=== PATIENT | female | born 1975 | race Two or more races ===

== ENCOUNTER 2017-05-17 08:52 | Outpatient (CLI) | payer OTHER | END 2017-05-17 23:59 | disposition home or self-care (01) | LOC: MRI 08:52 | DX: M17.11 Unilateral primary osteoarthritis, right knee (principal); M23.221 Derangement of posterior horn of medial meniscus due to old tear or injury, right knee; M71.561 Other bursitis, not elsewhere classified, right knee; M25.461 Effusion, right knee; M65.88 Other synovitis and tenosynovitis, other site | CPT/HCPCS: 73721-TC ==

== ENCOUNTER 2017-06-24 12:59 | Outpatient (CLI) | payer BC ==
[2017-06-24 13:44] LABS: BASOPHILS # (AUTO) 0.1 /CMM (0.0-0.2); BASOPHILS % (AUTO) 0.5 % (0.0-2.0); EOSINOPHILS # (AUTO) 0.3 /CMM (0.0-0.7); EOSINOPHILS % (AUTO) 2.3 % (0.0-6.0); HEMATOCRIT 40 % (33-45); HEMOGLOBIN 13.1 g/dL (11.5-14.8); LYMPHOCYTES # (AUTO) 3.3 /CMM (0.8-4.8); LYMPHOCYTES % (AUTO) 28.9 % (20.0-44.0); MEAN CORPUSCULAR HEMOGLOBIN 26 PG (26.0-33.0); MEAN CORPUSCULAR HGB CONC 33 g/dl (31.0-36.0); MEAN CORPUSCULAR VOLUME 79 fL (82-100); MONOCYTES # (AUTO) 0.9 /CMM (0.1-1.30); MONOCYTES % (AUTO) 8.2 % (2.0-12.0); NEUTROPHILS # (AUTO) 6.8 /CMM (1.8-8.9); NEUTROPHILS % (AUTO) 60.1 % (43.0-81.0); PLATELET COUNT (AUTO) 385 /CMM (150-450); RDW COEFFICIENT OF VARIATION 13.9 (11.5-15.0); RED BLOOD CELL COUNT(AUTO) 5.03 MIL/uL (4.0-5.2); WHITE BLOOD COUNT (AUTO) 11.3 K/uL (4.3-11.0)
[2017-06-24 13:57] LABS: ALBUMIN 3.7 g/dL (3.4-5.0); BILIRUBIN,TOTAL 0.3 mg/dL (0.2-1.0); CALCIUM, SERUM 9.4 mg/dL (8.5-10.1); CREATININE 0.7 mg/dL (0.6-1.3); INR 0.9 (0.87-1.13); POTASSIUM 3.6 mmol/L (3.5-5.1); PROTHROMBIN TIME 9.4 SECS (9.5-12.7)
[2017-06-24 16:13] LABS: APPEARANCE,URINE SL CLOUDY (CLEAR); BILIRUBIN,URINE NEGATIVE (NEGATIVE); BLOOD, URINE NEGATIVE Ery/uL (NEGATIVE); COLOR,URINE YELLOW (YELLOW); KETONES,URINE TRACE (NEGATIVE); LEUKOCYTE ESTERASE ,URINE NEGATIVE (NEGATIVE); NITRITE, URINE NEGATIVE (NEGATIVE); PROTEIN,URINE NEGATIVE (NEGATIVE); UGLUCOSE NEGATIVE (NEGATIVE); UROBILINOGEN,URINE 0.2 EU/dL (0.2)
[2017-06-24 16:42] LABS: BACTERIA,URINE Many /HPF (None Seen); SQUAMOUS EPITHELIAL CELL,UR Many /HPF (None Seen)
== END 2017-06-24 23:59 | disposition home or self-care (01) ==
LOC: LAB 12:59
PROVIDERS: ATTEND Specialist
DX: Z01.818 Encounter for other preprocedural examination (principal)
CPT/HCPCS: 36415; 71020-TC; 80053-TC; 81000-TC; 84703-TC; 85025-TC; 85730-TC; 87086-TC; 87186-TC

== ENCOUNTER 2017-06-29 05:14 | Day surgery (SDC) | payer OTHER ==
[2017-06-29] MEDS ORDERED: CEFAZOLIN SODIUM/DEXTROSE,ISO 50 ML IV ONE (05:48)
[2017-06-29] MEDS ORDERED: LIDOCAINE 1% INJ 50 ML MDV IJ ONE (06:26)
[2017-06-29] MEDS ORDERED: methylPREDNISolone ACETATE 80 MG/ML VIAL ONE (06:27)
[2017-06-29] MEDS ORDERED: FENTANYL PF 100MCG/2ML AMPUL IV ONE (08:04)
[2017-06-29] MEDS ORDERED: HYDROCODONE/APAP 5/325MG 1 EACH TABLET ONE (08:47)
[2017-06-29] MEDS ORDERED: HYDROCODONE/APAP 5/325MG 1 EACH TABLET PO PRN ×2 (09:00)
== END 2017-06-29 09:00 | disposition home or self-care (01) ==
LOC: DS 05:14
PROVIDERS: ATTEND Specialist
DX: S83.281A Other tear of lateral meniscus, current injury, right knee, initial encounter (principal); S83.241A Other tear of medial meniscus, current injury, right knee, initial encounter; X58.XXXA Exposure to other specified factors, initial encounter; Y93.9 Activity, unspecified; Y92.89 Other specified places as the place of occurrence of the external cause; Y99.9 Unspecified external cause status; M94.261 Chondromalacia, right knee; M65.861 Other synovitis and tenosynovitis, right lower leg; M23.41 Loose body in knee, right knee; E66.9 Obesity, unspecified
CPT/HCPCS: 29880; 84703; 88304; 88305; 88311; A4217; A6253 ×2; A6402; J0690 ×2; J1040; J1100; J1885; J2405; J2704; J3490 ×2; Z7610; J3010

== ENCOUNTER 2018-08-15 13:30 | Outpatient (CLI) | payer BC, OTHER | END 2018-08-15 23:59 | disposition home or self-care (01) | LOC: WOU 13:30 | PROVIDERS: ATTEND Podiatrist Foot & Ankle Surgery | DX: B35.3 Tinea pedis (principal); L84 Corns and callosities; Q82.8 Other specified congenital malformations of skin; M79.672 Pain in left foot; M79.671 Pain in right foot | CPT/HCPCS: G0463 ==

== ENCOUNTER 2018-11-02 10:02 | Emergency (ER) | payer BC ==
[~2018-11-02] VITALS: Ht 160 cm; Wt 115.7 kg
[2018-11-02 10:10] VITALS: BP 128/80
== END 2018-11-02 11:40 | disposition home or self-care (01) ==
LOC: ER 10:07
DX: S93.491A Sprain of other ligament of right ankle, initial encounter (principal); Z90.49 Acquired absence of other specified parts of digestive tract; X50.1XXA Overexertion from prolonged static or awkward postures, initial encounter; Y93.89 Activity, other specified; Y92.89 Other specified places as the place of occurrence of the external cause; Y99.0 Civilian activity done for income or pay
CPT/HCPCS: 73610-TC

== ENCOUNTER 2019-03-13 07:38 | Outpatient (CLI) | payer BC ==
[2019-03-13 09:15] LABS: BASOPHILS # (AUTO) 0.1 /CMM (0.0-0.2); BASOPHILS % (AUTO) 0.7 % (0.0-2.0); EOSINOPHILS % (AUTO) 1.3 % (0.0-6.0); HEMATOCRIT 37 % (33-45); LYMPHOCYTES # (AUTO) 3.1 /CMM (0.8-4.8); MEAN CORPUSCULAR HGB CONC 33 g/dl (31.0-36.0); MEAN CORPUSCULAR VOLUME 75 fL (82-100); MONOCYTES # (AUTO) 0.8 /CMM (0.1-1.30); MONOCYTES % (AUTO) 7.6 % (2.0-12.0); NEUTROPHILS # (AUTO) 6.6 /CMM (1.8-8.9); NEUTROPHILS % (AUTO) 61.4 % (43.0-81.0); PLATELET COUNT (AUTO) 375 /CMM (150-450); RED BLOOD CELL COUNT(AUTO) 4.95 MIL/uL (4.0-5.2); WHITE BLOOD COUNT (AUTO) 10.7 K/uL (4.3-11.0)
[2019-03-13 09:40] LABS: ALBUMIN 3.6 g/dL (3.4-5.0); BILIRUBIN,TOTAL 0.5 mg/dL (0.2-1.0); CALCIUM, SERUM 8.8 mg/dL (8.5-10.1); CREATININE 0.6 mg/dL (0.6-1.3); POTASSIUM 3.7 mmol/L (3.5-5.1)
[2019-03-13 09:54] LABS: FREE T4 (FREE THYROXINE) 1.26 ng/dL (0.76-1.46); THYROID STIMULATING HORMONE 2.021 uIU/mL (0.358-3.74)
[2019-03-13 09:56] LABS: APPEARANCE,URINE SL CLOUDY (CLEAR); BILIRUBIN,URINE NEGATIVE (NEGATIVE); BLOOD, URINE NEGATIVE Ery/uL (NEGATIVE); COLOR,URINE YELLOW (YELLOW); KETONES,URINE NEGATIVE (NEGATIVE); LEUKOCYTE ESTERASE ,URINE 1+ (NEGATIVE); NITRITE, URINE NEGATIVE (NEGATIVE); PROTEIN,URINE NEGATIVE (NEGATIVE); UGLUCOSE NEGATIVE (NEGATIVE); UROBILINOGEN,URINE 0.2 EU/dL (0.2)
[2019-03-13 13:18] LABS: RBC,URINE 0-2 /HPF (0-2); SQUAMOUS EPITHELIAL CELL,UR Moderate /HPF (None Seen)
[2019-03-13 13:21] LABS: BACTERIA,URINE Few /HPF (None Seen)
[2019-03-14 08:08] LABS: FOLLICLE STIMULATION HORMONE 2.3 mIU/mL (.); LUTEINIZING HORMONE 2.3 mIU/mL (.)
[2019-03-14 12:06] LABS: FOLIC ACID 8.4 ng/mL (>3.0)
== END 2019-03-13 23:59 | disposition home or self-care (01) ==
LOC: LAB 07:38
PROVIDERS: ATTEND Legal Medicine
DX: Z00.00 Encounter for general adult medical examination without abnormal findings (principal)
CPT/HCPCS: 36415; 80053-TC; 80061-TC; 81000-TC; 82306; 82728-TC; 83001; 83002; 83540-TC; 84439-TC; 84443-TC; 85025-TC; 87086-TC

== ENCOUNTER 2019-03-20 10:49 | Outpatient (CLI) | payer BC | END 2019-03-20 23:59 | disposition home or self-care (01) | LOC: MRI 10:49 | PROVIDERS: ATTEND Legal Medicine | DX: M72.2 Plantar fascial fibromatosis (principal); M77.32 Calcaneal spur, left foot; M19.072 Primary osteoarthritis, left ankle and foot; M20.12 Hallux valgus (acquired), left foot; M25.872 Other specified joint disorders, left ankle and foot; M77.52 Other enthesopathy of left foot and ankle | CPT/HCPCS: 73718-TC ==

== ENCOUNTER 2019-03-28 13:37 | Outpatient (CLI) | payer BC | END 2019-03-28 23:59 | disposition home or self-care (01) | LOC: WOU 13:37 | PROVIDERS: ATTEND Podiatrist Foot & Ankle Surgery | DX: M72.2 Plantar fascial fibromatosis (principal); M20.12 Hallux valgus (acquired), left foot; M79.672 Pain in left foot | CPT/HCPCS: G0463 ==

== ENCOUNTER 2019-05-02 14:14 | Outpatient (CLI) | payer BC ==
[2019-05-02] MEDS ORDERED: DEXAMETHASONE SOD PHOSPHATE 4 MG/ML VIAL IJ ONE (14:30)
[2019-05-02] MEDS ORDERED: BUPIVACAINE 0.5 % PF 150 MG/30 ML VIAL IJ ONE (14:30)
== END 2019-05-02 23:59 | disposition home or self-care (01) ==
LOC: WOU 14:14
PROVIDERS: ATTEND Podiatrist Foot & Ankle Surgery
DX: M72.2 Plantar fascial fibromatosis (principal); M79.672 Pain in left foot
CPT/HCPCS: 20550; J1100; J3490

== ENCOUNTER 2020-11-25 08:21 | Outpatient (CLI) | payer BC ==
[2020-11-25 09:28] LABS: BASOPHILS # (AUTO) 0.1 /CMM (0.0-0.2); BASOPHILS % (AUTO) 0.6 % (0.0-2.0); EOSINOPHILS % (AUTO) 0.9 % (0.0-6.0); HEMATOCRIT 33 % (33-45); LYMPHOCYTES # (AUTO) 4.1 /CMM (0.8-4.8); LYMPHOCYTES % (AUTO) 23.8 % (20.0-44.0); MEAN CORPUSCULAR HGB CONC 31 g/dl (31.0-36.0); MEAN CORPUSCULAR VOLUME 69 fL (82-100); MONOCYTES % (AUTO) 6.1 % (2.0-12.0); NEUTROPHILS # (AUTO) 11.9 /CMM (1.8-8.9); NEUTROPHILS % (AUTO) 68.6 % (43.0-81.0); PLATELET COUNT (AUTO) 586 /CMM (150-450); RED BLOOD CELL COUNT(AUTO) 4.77 MIL/uL (4.0-5.2); WHITE BLOOD COUNT (AUTO) 17.3 K/uL (4.3-11.0)
[2020-11-25 09:42] LABS: BILIRUBIN,URINE NEGATIVE (NEGATIVE); COLOR,URINE YELLOW (YELLOW); LEUKOCYTE ESTERASE ,URINE TRACE (NEGATIVE); NITRITE, URINE NEGATIVE (NEGATIVE); PROTEIN,URINE NEGATIVE (NEGATIVE); UGLUCOSE NEGATIVE (NEGATIVE); UROBILINOGEN,URINE 0.2 EU/dL (0.2)
[2020-11-25 09:46] LABS: POTASSIUM 3.7 mmol/L (3.5-5.1)
[2020-11-25 10:06] LABS: C-REACTIVE PROTEIN 1.6 mg/dL (0.0-0.9); FREE T4 (FREE THYROXINE) 1.11 ng/dL (0.76-1.46); THYROID STIMULATING HORMONE 0.931 uIU/mL (0.358-3.74)
[2020-11-25 10:16] LABS: ALBUMIN 3.4 g/dL (3.4-5.0)
[2020-11-25 10:36] LABS: BACTERIA,URINE Moderate /HPF (None Seen); RBC,URINE 0-2 /HPF (0-2); SQUAMOUS EPITHELIAL CELL,UR Moderate /HPF (None Seen)
[2020-11-25 10:38] LABS: BILIRUBIN,TOTAL 0.3 mg/dL (0.2-1.0); CALCIUM, SERUM 8.9 mg/dL (8.5-10.1); CREATININE 0.5 mg/dL (0.6-1.3); TOTAL PROTEIN, SERUM 7.9 g/dL (6.4-8.2)
[2020-11-25] MEDS ORDERED: IOHEXOL-300 100 ML VIAL IV ONE (11:23)
[2020-11-25] MEDS ORDERED: CT SWABBABLE VALVE TRANS SET 1 EA INFUS.SET MC ONE (11:23)
[2020-11-25] MEDS ORDERED: IV NS 0.9% 250 ML IV ONE (11:23)
== END 2020-11-25 23:59 | disposition home or self-care (01) ==
LOC: CT 08:21
PROVIDERS: ATTEND Legal Medicine
DX: I13.0 Hypertensive heart and chronic kidney disease with heart failure and stage 1 through stage 4 chronic kidney disease, or unspecified chronic kidney disease (principal); N18.9 Chronic kidney disease, unspecified; I50.9 Heart failure, unspecified; R22.1 Localized swelling, mass and lump, neck
CPT/HCPCS: 36415; 70491; 80053; 80061; 81001; 83036; 83615; 83880; 84439; 84443; 85025; 85652; 86140; 87086; J7050; Q9967

== ENCOUNTER 2020-11-28 07:59 | Outpatient (CLI) | payer BC | END 2020-11-28 23:59 | disposition home or self-care (01) | LOC: CARD 07:59 | PROVIDERS: ATTEND Legal Medicine | DX: I08.0 Rheumatic disorders of both mitral and aortic valves (principal); I70.0 Atherosclerosis of aorta | CPT/HCPCS: 93307-TC ==

== ENCOUNTER 2021-02-13 12:26 | Emergency (ER) | payer OTHER, BC ==
[~2021-02-13] VITALS: Ht 170.2 cm; Wt 128.8 kg
[2021-02-13] MEDS ORDERED: IBUP-1955 PO (13:52)
[2021-02-13] MEDS ORDERED: IBUPROFEN 600 MG TABLET ONE (14:05)
[2021-02-13] MEDS: IBUPROFEN 600 MG TABLET PO ONE (14:07)
--- NOTE | 2021-02-13 14:19 | NUR ---
RADHA WRAP APPLIED ON LEFT KNEE AND CRUTCHES PROVIDED. Patient discharged to home in stable condition. Written and verbal after care instructions given. Patient verbalizes understanding of instruction.
[2021-02-13 14:20] VITALS: BP 129/81
== END 2021-02-13 14:21 | disposition home or self-care (01) ==
LOC: ER 12:30
DX: S89.82XA Other specified injuries of left lower leg, initial encounter (principal); Z90.49 Acquired absence of other specified parts of digestive tract; X58.XXXA Exposure to other specified factors, initial encounter; Y93.01 Activity, walking, marching and hiking; Y92.89 Other specified places as the place of occurrence of the external cause; Y99.8 Other external cause status
CPT/HCPCS: 73564-TC

== ENCOUNTER 2021-02-16 12:22 | Outpatient (CLI) | payer OTHER, BC ==
[~2021-02-16 12:22] MED LIST: IBUP-1955 PO
== END 2021-02-16 23:59 | disposition home or self-care (01) ==
LOC: MRI 12:22
PROVIDERS: ATTEND Nurse Practitioner Acute Care
DX: S83.242A Other tear of medial meniscus, current injury, left knee, initial encounter (principal); M17.12 Unilateral primary osteoarthritis, left knee; M22.42 Chondromalacia patellae, left knee; M25.462 Effusion, left knee; X58.XXXA Exposure to other specified factors, initial encounter; Y93.89 Activity, other specified; Y92.89 Other specified places as the place of occurrence of the external cause; Y99.0 Civilian activity done for income or pay
CPT/HCPCS: 73721-TC

== ENCOUNTER 2022-04-06 13:28 | Outpatient (CLI) | payer BC | END 2022-04-06 23:59 | disposition home or self-care (01) | LOC: RAD 13:28 | PROVIDERS: ATTEND Legal Medicine | DX: M19.071 Primary osteoarthritis, right ankle and foot (principal); M20.11 Hallux valgus (acquired), right foot; M77.31 Calcaneal spur, right foot; M25.871 Other specified joint disorders, right ankle and foot | CPT/HCPCS: 73630-TC ==

== ENCOUNTER 2022-04-12 08:03 | Outpatient (CLI) | payer BC ==
[2022-04-12 09:00] LABS: BASOPHILS # (AUTO) 0.1 K/uL (0.0-0.2); EOSINOPHILS % (AUTO) 1.9 % (0.0-6.0); HEMATOCRIT 42 % (33-45); HEMOGLOBIN 13.5 g/dL (11.5-14.8); LYMPHOCYTES # (AUTO) 2.6 K/uL (0.8-4.8); LYMPHOCYTES % (AUTO) 29.7 % (20.0-44.0); MEAN CORPUSCULAR HGB CONC 32 g/dl (31.0-36.0); MEAN CORPUSCULAR VOLUME 81 fL (82-100); MONOCYTES # (AUTO) 0.6 K/uL (0.1-1.30); MONOCYTES % (AUTO) 6.9 % (2.0-12.0); NEUTROPHILS # (AUTO) 5.3 K/uL (1.8-8.9); NEUTROPHILS % (AUTO) 60.5 % (43.0-81.0); PLATELET COUNT (AUTO) 365 K/uL (150-450); RED BLOOD CELL COUNT(AUTO) 5.25 MIL/uL (4.0-5.2); WHITE BLOOD COUNT (AUTO) 8.8 K/uL (4.3-11.0)
[2022-04-12 09:02] LABS: BILIRUBIN,URINE SMALL (NEGATIVE); COLOR,URINE DARK YELLOW (YELLOW); LEUKOCYTE ESTERASE ,URINE TRACE (NEGATIVE); NITRITE, URINE NEGATIVE (NEGATIVE); PH,URINE 6.5 (5.0-8.0); PROTEIN,URINE 30 mg/dl (NEGATIVE); UGLUCOSE NEGATIVE (NEGATIVE)
[2022-04-12 09:33] LABS: THYROID STIMULATING HORMONE 1.895 uIU/mL (0.358-3.74)
[2022-04-12 10:16] LABS: BACTERIA,URINE Few /HPF (None Seen); RBC,URINE 81-100 /HPF (0-2); SQUAMOUS EPITHELIAL CELL,UR Few /HPF (None Seen)
[2022-04-12 10:28] LABS: ALBUMIN 3.6 g/dL (3.4-5.0); BILIRUBIN,TOTAL 0.5 mg/dL (0.2-1.0); CREATININE 0.6 mg/dL (0.6-1.3); POTASSIUM 3.5 mmol/L (3.5-5.1); TOTAL PROTEIN, SERUM 7.5 g/dL (6.4-8.2)
== END 2022-04-12 23:59 | disposition home or self-care (01) ==
LOC: LAB 08:03
PROVIDERS: ATTEND Legal Medicine
DX: Z00.00 Encounter for general adult medical examination without abnormal findings (principal); E11.9 Type 2 diabetes mellitus without complications; E55.9 Vitamin D deficiency, unspecified; E78.00 Pure hypercholesterolemia, unspecified; R53.1 Weakness; I10 Essential (primary) hypertension; D64.9 Anemia, unspecified
CPT/HCPCS: 36415; 80053-TC; 80061-TC; 81001; 82306; 82607-TC; 82728-TC; 83540-TC; 84443-TC; 85025-TC; 85652-TC; 85730-TC

== ENCOUNTER 2022-04-20 10:20 | Outpatient (CLI) | payer BC | END 2022-04-20 23:59 | disposition home or self-care (01) | LOC: WOU 10:20 | PROVIDERS: ATTEND Podiatrist Foot & Ankle Surgery | DX: G57.61 Lesion of plantar nerve, right lower limb (principal); M20.11 Hallux valgus (acquired), right foot; L84 Corns and callosities; M79.671 Pain in right foot | CPT/HCPCS: G0463 ==

== ENCOUNTER 2022-05-18 08:12 | Outpatient (CLI) | payer BC ==
[2022-05-18] MEDS ORDERED: LIDOCAINE HCL/MPF 1% 30 ML VIAL IJ ONE (08:58)
== END 2022-05-18 23:59 | disposition home or self-care (01) ==
LOC: WOU 08:12
PROVIDERS: ATTEND Podiatrist Foot & Ankle Surgery
DX: G57.61 Lesion of plantar nerve, right lower limb (principal); L84 Corns and callosities; M20.11 Hallux valgus (acquired), right foot; M79.671 Pain in right foot
CPT/HCPCS: 64455; J1100; J3490

== ENCOUNTER 2022-12-23 08:13 | Outpatient (CLI) | payer BC ==
[2022-12-23 09:33] LABS: BILIRUBIN,URINE 1+ (NEGATIVE); COLOR,URINE YELLOW (YELLOW); LEUKOCYTE ESTERASE ,URINE TRACE (NEGATIVE); NITRITE, URINE NEGATIVE (NEGATIVE); PROTEIN,URINE NEGATIVE (NEGATIVE); UGLUCOSE NEGATIVE (NEGATIVE)
[2022-12-23 09:42] LABS: BASOPHILS # (AUTO) 0.1 K/uL (0.0-0.2); BASOPHILS % (AUTO) 0.8 % (0.0-2.0); EOSINOPHILS % (AUTO) 1.5 % (0.0-6.0); HEMATOCRIT 41 % (33-45); HEMOGLOBIN 12.6 g/dL (11.5-14.8); LYMPHOCYTES # (AUTO) 3.7 K/uL (0.8-4.8); LYMPHOCYTES % (AUTO) 33.5 % (20.0-44.0); MEAN CORPUSCULAR HGB CONC 31 g/dl (31.0-36.0); MEAN CORPUSCULAR VOLUME 82 fL (82-100); MONOCYTES # (AUTO) 0.9 K/uL (0.1-1.30); MONOCYTES % (AUTO) 8.1 % (2.0-12.0); NEUTROPHILS # (AUTO) 6.2 K/uL (1.8-8.9); NEUTROPHILS % (AUTO) 56.1 % (43.0-81.0); PLATELET COUNT (AUTO) 432 K/uL (150-450); RED BLOOD CELL COUNT(AUTO) 4.99 MIL/uL (4.0-5.2)
[2022-12-23 09:43] LABS: BACTERIA,URINE Rare /HPF (None Seen); SQUAMOUS EPITHELIAL CELL,UR Few /HPF (None Seen); WBC,URINE 0-2 /HPF (0-3)
[2022-12-23 10:00] LABS: C-REACTIVE PROTEIN 0.8 mg/dL (0.0-0.9); THYROID STIMULATING HORMONE 0.95 uIU/mL (0.358-3.74); URIC ACID 4.9 mg/dL (2.6-7.2)
[2022-12-23 10:45] LABS: ALBUMIN 3.8 g/dL (3.4-5.0); BILIRUBIN,TOTAL 0.6 mg/dL (0.2-1.0); CALCIUM, SERUM 9.7 mg/dL (8.5-10.1); CREATININE 0.6 mg/dL (0.6-1.3); POTASSIUM 3.7 mmol/L (3.5-5.1)
== END 2022-12-23 23:59 | disposition home or self-care (01) ==
LOC: LAB 08:13
PROVIDERS: ATTEND Legal Medicine
DX: Z00.00 Encounter for general adult medical examination without abnormal findings (principal); M17.0 Bilateral primary osteoarthritis of knee; M25.862 Other specified joint disorders, left knee; M25.861 Other specified joint disorders, right knee; R53.1 Weakness; E78.00 Pure hypercholesterolemia, unspecified; D64.9 Anemia, unspecified; E55.9 Vitamin D deficiency, unspecified; M25.561 Pain in right knee; M25.562 Pain in left knee
CPT/HCPCS: 36415; 73562; 80053-TC; 81001; 82085; 82306; 82607-TC; 82728-TC; 83540-TC; 84439-TC; 84443-TC; 84550-TC; 85025-TC; 85240; 85652-TC; 85730-TC; 86140-TC; 86200; 86431-TC

== ENCOUNTER 2022-12-24 15:03 | Outpatient (CLI) | payer BC | END 2022-12-24 23:59 | disposition home or self-care (01) | LOC: RAD 15:03 | PROVIDERS: ATTEND Legal Medicine | DX: M17.0 Bilateral primary osteoarthritis of knee (principal); M79.89 Other specified soft tissue disorders; M25.762 Osteophyte, left knee; M25.761 Osteophyte, right knee; M79.604 Pain in right leg; M79.605 Pain in left leg | CPT/HCPCS: 73560-TC; 93970-TC ==

== ENCOUNTER 2023-03-30 08:49 | Outpatient (CLI) | payer BC ==
[2023-03-30 09:32] LABS: BASOPHILS # (AUTO) 0.1 K/uL (0.0-0.2); BASOPHILS % (AUTO) 1.2 % (0.0-2.0); CALCIUM, SERUM 9.7 mg/dL (8.5-10.1); CREATININE 0.6 mg/dL (0.6-1.3); EOSINOPHILS # (AUTO) 0.1 K/uL (0.0-0.7); EOSINOPHILS % (AUTO) 1.2 % (0.0-6.0); HEMATOCRIT 42 % (33-45); HEMOGLOBIN 13.3 g/dL (11.5-14.8); LYMPHOCYTES # (AUTO) 2.7 K/uL (0.8-4.8); MEAN CORPUSCULAR HEMOGLOBIN 25 PG (26.0-33.0); MEAN CORPUSCULAR HGB CONC 32 g/dl (31.0-36.0); MEAN CORPUSCULAR VOLUME 80 fL (82-100); MONOCYTES # (AUTO) 0.9 K/uL (0.1-1.30); MONOCYTES % (AUTO) 7.9 % (2.0-12.0); NEUTROPHILS # (AUTO) 7.4 K/uL (1.8-8.9); NEUTROPHILS % (AUTO) 65.7 % (43.0-81.0); PLATELET COUNT (AUTO) 464 K/uL (150-450); POTASSIUM 3.7 mmol/L (3.5-5.1); PREGNANCY TEST URINE QUAL NEGATIVE (NEGATIVE); RED BLOOD CELL COUNT(AUTO) 5.25 MIL/uL (4.0-5.2); RED CELL DISTRIBUTION WIDTH 14.1 % (11.5-15.0); WHITE BLOOD COUNT (AUTO) 11.3 K/uL (4.3-11.0)
[2023-03-30 09:40] LABS: INR 0.99 (0.91-1.10); PARTIAL THROMBOPLASTIN TIME 30.2 SEC (24.3-34.3); PROTHROMBIN TIME 10.4 SECS (9.2-11.1)
== END 2023-03-30 23:59 | disposition home or self-care (01) ==
LOC: LAB 08:49
PROVIDERS: ATTEND Podiatrist Foot & Ankle Surgery
DX: Z01.818 Encounter for other preprocedural examination (principal); M20.11 Hallux valgus (acquired), right foot; M79.671 Pain in right foot; M25.374 Other instability, right foot
CPT/HCPCS: 36415; 71045-TC; 80048-TC; 84703-TC; 85025-TC; 85610-TC; 85730-TC

== ENCOUNTER 2023-05-31 06:06 | Day surgery (SDC) | payer BC ==
[2023-05-31] MEDS ORDERED: FENTANYL PF 250MCG/5ML AMPUL ONE (06:38)
[2023-05-31] MEDS ORDERED: FAMOTIDINE/PF INJ 20 MG/2 ML VIAL IV ONE (06:39)
[2023-05-31] MEDS ORDERED: MIDAZOLAM HCL 2 MG/2ML VIAL ONE (06:39)
[2023-05-31] MEDS ORDERED: BACITRACIN ZINC OINT PACKET 1 EA PACKET TP ONE (07:06)
[2023-05-31] MEDS ORDERED: BUPIVACAINE 0.5 % PF 150 MG/30 ML VIAL ONE (07:06)
[2023-05-31] MEDS ORDERED: LIDOCAINE 1% INJ 50 ML MDV IJ ONE (07:06)
[2023-05-31] MEDS ORDERED: LIDOCAINE 1%-EPI 1:100,000 20 ML VIAL ONE (07:06)
[2023-05-31] MEDS ORDERED: POLYMYXIN B SULFATE 500,000 UNITS ONE (07:07)
[2023-05-31 07:36] LABS: PREGNANCY TEST URINE QUAL NEGATIVE (NEGATIVE)
[2023-05-31] MEDS ORDERED: LIDOCAINE HCL/MPF 1% 30 ML VIAL IJ ONE (07:39)
[2023-05-31] MEDS ORDERED: HYDROMORPHONE 1 MG/1 ML DISP.SYRIN ONE (09:33)
[2023-05-31] MEDS ORDERED: ONDANSETRON HCL/PF 4 MG/2 ML VIAL ONE (11:12)
[2023-05-31] MEDS ORDERED: HYDROCODONE/APAP 5/325MG TABLET ONE (11:16)
== END 2023-05-31 10:30 | disposition home or self-care (01) ==
LOC: DS 06:06
PROVIDERS: ATTEND Podiatrist Foot & Ankle Surgery
DX: M20.11 Hallux valgus (acquired), right foot (principal); M79.671 Pain in right foot; M25.374 Other instability, right foot; Z98.84 Bariatric surgery status; F41.9 Anxiety disorder, unspecified; M19.90 Unspecified osteoarthritis, unspecified site; E66.01 Morbid (severe) obesity due to excess calories; Z98.890 Other specified postprocedural states; Z79.899 Other long term (current) drug therapy
CPT/HCPCS: 28297; 97162; 73630; 97530; 97112; 97116; 84703; 73660; J0690; J3490 ×5; J2704; J2765; J2405 ×2; J7030; J2250; A6402; C1769 ×2; C1713 ×6; J3010; J1170

== ENCOUNTER 2023-09-27 08:21 | Outpatient (CLI) | payer BC | END 2023-09-27 23:59 | disposition home or self-care (01) | LOC: RAD 08:21 | PROVIDERS: ATTEND Podiatrist Foot & Ankle Surgery | DX: M77.31 Calcaneal spur, right foot (principal); M21.071 Valgus deformity, not elsewhere classified, right ankle | CPT/HCPCS: 73630-TC ==

== ENCOUNTER 2023-10-13 11:40 | Emergency (ER) | payer BC, OTHER ==
[~2023-10-13] VITALS: Ht 165.1 cm; Wt 104.3 kg
[2023-10-13 12:08] VITALS: TEMP 98.2
[2023-10-13 15:23] LABS: BASOPHILS # (AUTO) 0.1 K/uL (0.0-0.2); BASOPHILS % (AUTO) 0.8 % (0.0-2.0); EOSINOPHILS % (AUTO) 0.1 % (0.0-6.0); HEMATOCRIT 39 % (33-45); HEMOGLOBIN 12.2 g/dL (11.5-14.8); LYMPHOCYTES # (AUTO) 2.3 K/uL (0.8-4.8); LYMPHOCYTES % (AUTO) 16.8 % (20.0-44.0); MEAN CORPUSCULAR HEMOGLOBIN 25 PG (26.0-33.0); MEAN CORPUSCULAR HGB CONC 32 g/dl (31.0-36.0); MEAN CORPUSCULAR VOLUME 78 fL (82-100); MONOCYTES # (AUTO) 0.8 K/uL (0.1-1.30); NEUTROPHILS # (AUTO) 10.3 K/uL (1.8-8.9); NEUTROPHILS % (AUTO) 76.3 % (43.0-81.0); PLATELET COUNT (AUTO) 425 K/uL (150-450); RED BLOOD CELL COUNT(AUTO) 4.92 MIL/uL (4.0-5.2); RED CELL DISTRIBUTION WIDTH 15.2 % (11.5-15.0); WHITE BLOOD COUNT (AUTO) 13.5 K/uL (4.3-11.0)
[2023-10-13 15:35] LABS: CALCIUM, SERUM 9.1 mg/dL (8.5-10.1); CREATININE 0.6 mg/dL (0.6-1.3); POTASSIUM 3.8 mmol/L (3.5-5.1)
[2023-10-13 15:45] LABS: ALBUMIN 3.7 g/dL (3.4-5.0); BILIRUBIN,DIRECT 0.2 mg/dL (0.0-0.2); BILIRUBIN,TOTAL 0.5 mg/dL (0.2-1.0); TOTAL PROTEIN, SERUM 7.8 g/dL (6.4-8.2)
[2023-10-13] MEDS ORDERED: CEPH500T PO (16:53)
[2023-10-13 17:37] VITALS: BP 136/84; O2SAT 98
== END 2023-10-13 17:38 | disposition home or self-care (01) ==
LOC: ER 11:40
DX: S30.1XXA Contusion of abdominal wall, initial encounter (principal); L03.311 Cellulitis of abdominal wall; Z90.49 Acquired absence of other specified parts of digestive tract; X58.XXXA Exposure to other specified factors, initial encounter; Y93.89 Activity, other specified; Y92.89 Other specified places as the place of occurrence of the external cause; Y99.8 Other external cause status
CPT/HCPCS: 36415; 80048-TC; 80076-TC; 83690-TC; 85025-TC